=== PATIENT | female | born 1985 | race Asian ===

== ENCOUNTER 2021-05-08 21:03 | Emergency (ER) | payer SELFPAY ==
[~2021-05-08] VITALS: Ht 157.5 cm; Wt 48.1 kg
[2021-05-08 21:11] VITALS: BP_SYST 129
--- NOTE | 2021-05-08 21:11 | NUR ---
Patient to ER bed 8 to gown for evaluation. Side rails up. Report given to Viral VENTURA.
--- NOTE | 2021-05-08 21:12 | NUR ---
Came in ER ambulatory from home this 35 year old female, AAOX4, breathing spontaneously at room air, not in distress noted. With chief complaints of Right thumb lacerated wound approximately 1.5cm, cut with the slicer an hour ago as claimed. No known medical/ no surgical history, no known allergy. vital signs stable
[2021-05-08] MEDS ORDERED: DIPH-TET-PERTUS Vaccine 0.5 ML VIAL (ADACEL) I.M. ONE (21:15)
[2021-05-08] MEDS ORDERED: LIDOCAINE 1% 10 MG/ML, 20 ML MDV INJ ONE (21:15)
[2021-05-08] MEDS ORDERED: BACITRACIN 1 GM OINT TP ONE (21:15)
--- NOTE | 2021-05-08 21:48 | NUR ---
Seen and examined by Dr. Cardona, ER Attending.
--- NOTE | 2021-05-08 21:55 | NUR ---
Dr. Cardona aseptically suture the right thum lacerated wound under the local anesthetic, with 2stitches 4.0 ethilon, bacitracin ointment applied, no adhesive dressing and roll gauze, no active bleeding noted.
[2021-05-08 22:10] VITALS: BP_SYST 129
--- NOTE | 2021-05-08 22:10 | NUR ---
Patient given written and verbal discharge instructions and verbalizes understanding. ER MD discussed with patient the results and treatment provided. Patient in stable condition. ID arm band removed. no Rx of given. Patient educated on pain management and to follow up with PMD. Pain Scale 0/10. Opportunity for questions provided and answered.
== END 2021-05-08 22:10 | disposition home or self-care (01) ==
LOC: SED 21:03 → EDSEX 21:03 → SED 22:10
DX: S61.011A Laceration without foreign body of right thumb without damage to nail, initial encounter (principal); W26.0XXA Contact with knife, initial encounter; Y93.89 Activity, other specified; Y92.89 Other specified places as the place of occurrence of the external cause; Y99.8 Other external cause status
CPT/HCPCS: 90715; 99283